=== PATIENT | female | born 1985 | race Hispanic/Latino ===

== ENCOUNTER 2017-12-09 11:38 | Day surgery (SDC) | payer OTHER ==
[2017-12-08 13:36] VITALS: BMI 25.3
[2017-12-09 12:34] LABS: HEMOGLOBIN 13.7 g/dL (12.0-16.0); MEAN CELL VOLUME 92.7 fl (81.0-99.0); MEAN CORPUSCULAR HEMOGLOBIN 32.3 pg (27.0-31.0); MEAN CORPUSCULAR HGB CONC 34.8 g/dL (33.0-37.0); RBC 4.23 Mil/uL (3.80-5.20); RED CELL DISTRIBUTION WIDTH 12.2 % (11.5-14.5); WHITE BLOOD COUNT 5.5 K/uL (4.8-10.8)
[2017-12-09] MEDS ORDERED: Lactated Ringer's 1,000 ML IV ONE ×3 (13:00→16:40)
[2017-12-09] MEDS ORDERED: Bupivacaine 0.5% Inj(30mL) ONE (14:29)
[2017-12-09] MEDS ORDERED: Sterile Water 10 ML IV ONE (14:29)
[2017-12-09] MEDS ORDERED: Rocuronium 10 mg/ml (5 ml) ONE (14:31)
[2017-12-09] MEDS ORDERED: Propofol 10 mg/ml Inj (20 ML) ONE (14:31)
[2017-12-09] MEDS ORDERED: Succinylcholine 200 mg/10 ml Inj IV ONE ×2 (14:31→15:20)
[2017-12-09] MEDS ORDERED: Midazolam 2 MG/2 ML VIAL ONE (15:20)
[2017-12-09] MEDS ORDERED: Dexamethasone 4 mg/1 ml ONE (15:40)
[2017-12-09] MEDS ORDERED: Bupivacaine 0.5% 50 ML IJ ONE (15:45)
[2017-12-09] MEDS ORDERED: Chlorhexidine Gluconate 2OZ GEL TP ONE (15:46)
[2017-12-09] MEDS ORDERED: Sevoflurane - Inhalation Anesthetic Liq (250 ml) ONE (15:55)
[2017-12-09] MEDS ORDERED: Neostigmine 1:1000 (1 mg/ml) Inj ONE (16:21)
[2017-12-09] MEDS ORDERED: Silver Nitrate Topical - Stick ONE (16:49)
[2017-12-09] MEDS ORDERED: Oxycodone/Acetaminophen 5/325 mg Tab PO PRN (17:25)
[2017-12-09] MEDS ORDERED: Lactated Ringer's 1,000 ML IV SCH ×2 (17:30→17:45)
[2017-12-09] MEDS ORDERED: HYDROmorphone 0.5 mg/0.5 ml ISec IVP PRN (17:34)
[2017-12-09] MEDS ORDERED: Trimethobenzamide 200 mg/2 mL Inj IM ONE (17:35)
--- NOTE | 2017-12-09 17:38 | PCM.ANESB5 ---
Transverse Abdominis Block - Transverse Abdominis Plane Date of Procedure: 12/09/17 Anesthesiologist: Antonio Pre-Procedure Diagnosis: Endometriosis Post-Procedure Diagnosis: Same Procedure Performed: Transverse Abdominis Plane Nerve Block Left, Transverse Abdominis Plane Nerve Block Right - Procedure Transverse Abdominis Plane Nerve Block: The procedure was explained to the patient that it is for post-operative pain management and would be performed after surgery. Consent was obtained prior to surgery after a thorough discussion with the patient regarding the benefits and possible complications of transverse abdominis plane block. After the surgery had concluded and before the patient emerged from general anesthesia, time-out was held with the circulating nurse to re-confirm the appropriate block. With the patient in supine position, the ultrasound probe was placed transverse to the abdominal wall at the mid-axillary line above the iliac crest of the appropriate side. The skin, subcutaneous tissue, fat, external oblique muscle, internal oblique muscle, and the transverse abdominis muscle were identified. The general area of the block site was then prepped with Betadine three times. At this point, a # 21-gauge Stimuplex 4-inch needle was inserted posterior to and in plane with the ultrasound probe and directed anteriorly. Needle was advanced under direct ultrasound visualization until it reached the plane between the internal oblique and transverse abdominis muscles. After appropriate placement, 2mL of local anesthetic solution was injected. When the transverse abdominis plane was observed expanding in an ellipsoid way, the rest of the solution was slowly injected. A total of 20_ mL of _0.25____ % __ bupivicaine was used for this block. The needle was then removed and sterile dressing was applied. Similarly, the same procedure was performed on the other side using the same medications. The patient had stable vital signs throughout and had no untoward complications after emergence from general anesthesia in the recovery room.
[2017-12-09 19:53] VITALS: TEMP 99.5
[2017-12-09 22:17] VITALS: BP 108/65; PULSE 61; RESP 20; O2SAT 98
--- NOTE | 2017-12-10 13:47 | OP ---
PROCEDURE DATE: 12/09/2017 PREOPERATIVE DIAGNOSES: Pelvic pain, dyspareunia, dysmenorrhea, rule out endometriosis. POSTOPERATIVE DIAGNOSES: Pelvic endometriosis with pelvic adhesions. PROCEDURE PERFORMED: Cystoscopy with bilateral ureteral catheterization and injection of dye, hysteroscopy diagnostic, robotic laparoscopy da Jony, excision of endometriosis, bilateral ureterolysis, also lysis of adhesions and excision of right rectal mass to be dictated separately by Dr. Neel Aquino from General Surgery. SURGEON: Tobin Duque MD OCCUPATIONAL HEALTH PHYSICIAN: Neel Aquino MD COMPLICATIONS: None. ESTIMATED BLOOD LOSS: Minimal. SAMPLES: Multiple samples sent to pathology from the left pelvic sidewall, posterior cervix, right and left cul-de-sac, right pelvic sidewall, ovarian fossa. INDICATIONS FOR PROCEDURE: The patient is a 32-year-old with a history of dysmenorrhea and dyspareunia. Upon examination, she has flank pain especially in the right cul-de-sac area, suggestive of presence of endometriosis. She was counseled preoperatively with regards to the risks and the benefits of the procedure. Also, she had a prior abdominal surgery and because of the history of the prior surgery it was understood that the surgery may be more involved and that a cystoscopy and injection of dye in the ureters would also be required in order to identify the ureters. Prior to the surgery, the patient signed the consent and reaffirmed a desire to move forward with the surgery. She was taken to the OR. DESCRIPTION OF PROCEDURE: After adequate anesthesia was obtained, the patient was placed in a dorsal lithotomy position with extreme care and padding and to make sure that her hips would not be hyperextended or hyperflexed, so at this point, the patient was prepped and draped. A time-out was taken according to hospital policy and the procedure was begun. A cystoscope was inserted in to the bladder and it was filled with 200 mL of sterile saline. Both ureters were in the normal anatomical position. The bladder was free of lesion, masses or tumors. At this point, the left ureter was catheterized using a [id number] Albanian catheter all the way to the distal ureter and 5 mL of IC-Green was injected. Similarly, in the contralateral side, 5-mL of IC-Green was injected in the ureter distally. The catheter was then removed and a Schmidt was replaced into the bladder. At this point, attention was on the pelvic area where a speculum was placed in the vagina and the anterior lip of the cervix was grasped. The cervix was gently dilated and the hysteroscope was inserted into the uterine cavity revealing normal cavity with no polyps, masses, adenomyosis or any other lesions. At this point, attention was on the abdomen where the surgeon, after re-gowned and re-gloving, performed an open laparoscopy according to standard technique entering the peritoneum in the blunt fashion. The camera port was insered and the abdomen insufflated. 3 additional ports were placed under direct vision. The Da jony xi robot was docked. Immediately, significant adhesions were identified mostly omental in nature. Dr. Aquino from general surgery came into the procedure and lysed those adhesions, he will dictate this part separately. At this point, the pelvis was fully visualized, revealing evidence of endometriosis both on the left pelvic sidewall and the cul-de-sac area. There were some black lesions, but also a normal looking endometriosis. The anterior compartment appeared to be normal. Both ovaries were normal, with exception of small area on the right ovary, which was ablated. At this point, on the left-hand side, after identifying the ureter utilizing fluorescent technology, the retroperitoneum was entered and a progressive dissection was carried out excising peritoneum and lateralizing the ureter all the way from the pelvic brim all the way down to the ovarian fossa with lower dissection to be in the left uterosacral ligament. The sample was then sent to pathology. The ureter was not affected. At this point, the posterior cervical area was identified and dissected off and the peritoneum was peeled off from the posterior cervical area all the way down until on the rectovaginal reflection, which the rectovaginal space was opened and the rectum pushed downwards and that area excised. At this point, attention was on the left perirectal fossa, which was excised and the sample was sent to pathology. A larger area with deep endometrial implant was on the right perirectal fossa and this was excised by Dr. Aquino from General Surgery who will dictate separately. At this point, attention was on the right pelvic sidewall where the ovary was elevated, it appeared that there were small superficial areas of endometriosis. The retroperitoneum was entered and the progressive dissection was performed medializing the peritoneum and lateralizing the ureter dissecting it out and performing a full dissection all the way down to the uterosacral ligaments. At this point, it was checked for hemostasis and appeared to be excellent. At this point, the helium plasma device was brought in and inflamed areas were also ablated to keep clean the margines of the endometriosis excision. At this point, it was checked for hemostasis and appeared to be excellent. The instruments were removed. The abdomen was de-sufflated. The incision was closed in layers with 0 PDS for the fascia and 4-0 Monocryl for the skin. At the end of the procedure, all tapes and instruments counts were correct. The patient was taken to the recovery room in excellent condition. Tobin Duque MD MTDD
--- NOTE | 2017-12-13 10:49 | PCM.OP ---
Operative Report - Operative Report Date of Surgery/Procedure: 12/09/17 Time of Surgery/Procedure: 13:00 Surgeon: Dr. Neel Aquino Usability Engineer: Dr. Tobin Duque Anesthesia/Sedation: general/Dr. Alvarez Pre-Operative Diagnosis: abdominal pain and endometriosis Post-Operative Diagnosis: same Indication for Surgery: as above Operative Findings: perirectal endometriosis (times four) Procedure/Operation Description: 1-Lysis of adhesions. 2-Excision multiple perirectal endometriosis. Brief Histroy: This is a 32 year old woman already brought to the oeprating room by Dr. Duque when he norted extesnive adhesions to the abdominal wall from adhesions and perirectal invovlement of the endometriosis. Intraoperative consutation was requested. Description of the procedure: The robotic procedure had already been initiated by dr. Duque ( seoarate dictation). After taking control of the robotic console multiple dense adhesions to nthe abdominal wall and pelvis were lysed in the usual fashion. Once exposed the perirectal lesions in question (times four) were exposed. the first lesion was incised circumferentially and using blunt and sharp dissection with the aid of electrocautery the first lesion was completely excised and sent to pathology separately. The remaining three, more distal lesion were excided in a similar fashion and each was marked and sent to patholgy separately. The operation was then turned back to Dr. Duque (separate dictation Dr. Duque). Estimated Blood Loss: 3 cc Complications: none Specimen: coreen-rectal endometriosis (times four) Discharge & Condition: stable
== END 2017-12-09 23:20 | disposition home or self-care (01) ==
LOC: H.OPSURG 11:38 → H.PEDS 20:41 → H.OPSURG 23:20
PROVIDERS: ATTEND Obstetrics & Gynecology Reproductive Endocrinology
DX: N80.3 Endometriosis of pelvic peritoneum (principal); R10.2 Pelvic and perineal pain; E03.9 Hypothyroidism, unspecified; N73.6 Female pelvic peritoneal adhesions (postinfective); N94.6 Dysmenorrhea, unspecified; K66.0 Peritoneal adhesions (postprocedural) (postinfection)
CPT/HCPCS: 36415; 45171; 58555; 58662; 64488; 85027; 86850; 86900; 88305; C1729; J0131; J0330; J0690; J1100; J1885; J2001; J2250; J2405; J2704; J2710; J2765; J3010; J3250; J7030; J7040; J7120